=== PATIENT | male | born 1995 | race Caucasian/White ===

== ENCOUNTER 2019-07-13 10:31 | Emergency (ER) | payer SELFPAY ==
[2019-07-13] MEDS ORDERED: IBUPROFEN 200 MG TAB PO ONE (10:57)
[2019-07-13] MEDS ORDERED: HYDROCODONE/APAP 7.5/325 MG TAB ONE (10:57)
[2019-07-13] MEDS ORDERED: IBUPROFEN 400 MG TAB ONE (10:58)
--- NOTE | 2019-07-13 11:11 | RAD REPORT ---
EXAM DESCRIPTION: RAD - Wrist Left 3 View - 07/13/2019 11:04 am CLINICAL HISTORY: Pain;Swelling Pain COMPARISON: No comparisons FINDINGS: No fracture or dislocation seen. No foreign body or other soft tissue abnormality. IMPRESSION: Negative examination.
--- NOTE | 2019-07-13 11:17 | ER ---
Nurse's Notes [facility] Name: Simone Garcia Age: 23 yrs Sex: Male : 1995 Arrival Date: 07/13/2019 Time: 10:32 Bed 7 Private MD: Diagnosis: Other specified sprain of left wrist Presentation: 07/12 10:34 Chief complaint: Patient states: Last night, tripped and fell, landed on the L side, ca1 tried to catch self with L hand. Reports pain and limited mobility on L wrist. Reports pain on L shoulder and L side of chest. Coronavirus screen: Proceed with normal triage. Patient denies a cough. Patient denies shortness of breath or difficulty breathing. Patient denies measured and/or subjective temperature greater than 100.4F prior to today's visit. Patient denies travel on a cruise ship or to a country the [facility] currently lists as an affected area. Patient denies contact with known and/or suspected case of COVID-19. Ebola Screen: Patient negative for fever greater than or equal to 101.5 degrees Fahrenheit, and additional compatible Ebola Virus Disease symptoms Patient denies exposure to infectious person. Patient denies travel to an Ebola-affected area in the 21 days before illness onset. No symptoms or risks identified at this time. Initial Sepsis Screen: Does the patient meet any 2 criteria? No. Patient's initial sepsis screen is negative. Does the patient have a suspected source of infection? No. Patient's initial sepsis screen is negative. Risk Assessment: Do you want to hurt yourself or someone else? Patient reports no desire to harm self or others. Onset of symptoms was July 12, 2019. 10:34 Method Of Arrival: Ambulatory ca1 10:34 Acuity: JORGE 4 ca1 Triage Assessment: 10:40 General: Appears in no apparent distress. comfortable, Behavior is calm, cooperative, bp appropriate for age. Pain: Complains of pain in left wrist. EENT: No deficits noted. Neuro: No deficits noted. Cardiovascular: No deficits noted. Respiratory: No deficits noted. GI: No signs and/or symptoms were reported involving the gastrointestinal system. : No signs and/or symptoms were reported regarding the genitourinary system. Derm: No deficits noted. Musculoskeletal: Swelling present in left wrist. Historical: - Allergies: 10:38 No Known Allergies; ca1 - Home Meds: 10:38 None [Active]; ca1 - PMHx: 10:38 None; ca1 - PSHx: 10:38 None; ca1 - Immunization history:: Adult Immunizations up to date, Flu vaccine is up to date. - Social history:: Smoking status: Patient/guardian denies using tobacco, the patient reports quitting approximately 1 years ago. Screenin:40 Abuse screen: Denies threats or abuse. Denies injuries from another. Nutritional bp screening: No deficits noted. Tuberculosis screening: No symptoms or risk factors identified. Fall Risk Fall in past 12 months (25 points). No secondary diagnosis (0 pts). No IV (0 pts). Ambulatory Aid- None/Bed Rest/Nurse Assist (0 pts). Gait- Normal/Bed Rest/Wheelchair (0 pts) Mental Status- Oriented to own ability (0 pts). Total Hicks Fall Scale indicates Low Risk Score (25-44 pts). Fall prevention measures have been instituted. Side Rails Up X 2 Placed close to Nursing Station Frequent Obs/Assesments occuring As available Patient and Family Educated on Fall Prevention Program and strategies. Assessment: 10:40 General: SEE TRIAGE NOTE. bp 10:45 General: Appears comfortable, Behavior is calm, cooperative. Pain: Complains of pain in aa5 left arm and left wrist and left side of chest Pain does not radiate. Pain currently is 8 out of 10 on a pain scale. Quality of pain is described as aching, Is continuous. Neuro: Level of Consciousness is awake, alert, obeys commands, Oriented to person, place, time, situation. Cardiovascular: Patient's skin is warm and dry. Respiratory: Airway is patent Respiratory effort is even, unlabored, Respiratory pattern is regular, symmetrical. GI: No signs and/or symptoms were reported involving the gastrointestinal system. : No signs and/or symptoms were reported regarding the genitourinary system. EENT: No signs and/or symptoms were reported regarding the EENT system. Derm: Skin is pink, warm \T\ dry. Musculoskeletal: Swelling present in left wrist. 11:30 Reassessment: Patient is alert, oriented x 3, equal unlabored respirations, skin aa5 warm/dry/pink. Vital Signs: 10:34 BP 155 / 94; Pulse 86; Resp 17 S; Temp 97.6(TE); Pulse Ox 99% on R/A; Weight 79.38 kg ca1 (R); Height 6 ft. 1 in. (185.42 cm); 10:34 Body Mass Index 23.09 (79.38 kg, 185.42 cm) ca1 ED Course: 10:32 Patient arrived in ED. ag5 10:32 [facility]i Gardner F[facility]-C [facility] kb 10:32 Dl Lopez MD is Attending Physician. kb 10:37 Triage completed. ca1 10:38 Arm band placed on right wrist. ca1 10:39 Iman Mayes, RN is Primary Nurse. aa5 10:40 Patient has correct armband on for positive identification. Bed in low position. Call bp light in reach. Side rails up X2. 11:04 Wrist Left (3 View) XRAY In Process Unspecified. EDMS 11:25 Velcro wrist splint applied to left wrist. dh3 11:30 No provider procedures requiring assistance completed. Patient did not have IV access aa5 during this emergency room visit. Administered Medications: 10:50 Drug: Moody (7.5 mg-325 mg) 1 tabs Route: PO; aa5 11:33 Follow up: Response: No adverse reaction aa5 10:50 Drug: Ibuprofen 600 mg Route: PO; aa5 11:33 Follow up: Response: No adverse reaction aa5 Outcome: 11:16 Discharge ordered by . kb 11:30 Discharged to home ambulatory. aa5 11:30 Condition: stable 11:30 Discharge instructions given to patient, Instructed on discharge instructions, follow up and referral plans. medication usage, Demonstrated understanding of instructions, follow-up care, medications, Prescriptions given X 1. 11:34 Patient left the ED. aa5 Signatures: Dispatcher [employer] EDMS Natali Gardner FNP-C FNP-Ckb Calderon, Audri, RN RN aa5 Isela Nicole 3 Giacomo Olmedo RN RN bp Acob, Cheryl, RN RN ca1 Amanda Wesley ag5
--- NOTE | 2019-07-13 11:17 | EDPHYS ---
Physician Documentation [facility] Name: Simone Garcia Age: 23 yrs Sex: Male : 1995 Arrival Date: 07/13/2019 Time: 10:32 Bed 7 Private MD: ED Physician Dl Lopez HPI: 07/12 11:14 This 23 yrs old Male presents to ER via Ambulatory with complaints of Fall kb Injury, Wrist Injury. 11:14 The patient or guardian reports decreased range of motion, injury, pain, swelling, kb tenderness. The complaints affect the left wrist diffusely. Context: The problem was sustained at home, resulted from "horseplaying and fell" onto outstretched hand. Onset: The symptoms/episode began/occurred last night. Modifying factors: The symptoms are alleviated by nothing, the symptoms are aggravated by movement. Associated signs and symptoms: The patient has no apparent associated signs or symptoms. The patient has not experienced similar symptoms in the past. The patient has not recently seen a physician. Pt reports pain, swelling, decreased ROM and tenderness to left wrist. Reports soreness to left elbow, shoulder and chest, but with full ROM/no pain on ROM of other joints. Historical: - Allergies: 10:38 No Known Allergies; ca1 - Home Meds: 10:38 None [Active]; ca1 - PMHx: 10:38 None; ca1 - PSHx: 10:38 None; ca1 - Immunization history:: Adult Immunizations up to date, Flu vaccine is up to date. - Social history:: Smoking status: Patient/guardian denies using tobacco, the patient reports quitting approximately 1 years ago. ROS: 11:14 Constitutional: Negative for fever, chills, and weight loss, Cardiovascular: Negative kb for chest pain, palpitations, and edema, Respiratory: Negative for shortness of breath, cough, wheezing, and pleuritic chest pain, Abdomen/GI: Negative for abdominal pain, nausea, vomiting, diarrhea, and constipation, Back: Negative for injury and pain, Skin: Negative for injury, rash, and discoloration, Neuro: Negative for headache, weakness, numbness, tingling, and seizure. 11:14 MS/extremity: Positive for pain, swelling, tenderness, of the left wrist. Exam: 11:13 Constitutional: This is a well developed, well nourished patient who is awake, alert, kb and in no acute distress. Head/Face: Normocephalic, atraumatic. Chest/axilla: Normal chest wall appearance and motion. Nontender with no deformity. No lesions are appreciated. Cardiovascular: Regular rate and rhythm with a normal S1 and S2. No gallops, murmurs, or rubs. Normal PMI, no JVD. No pulse deficits. Respiratory: Lungs have equal breath sounds bilaterally, clear to auscultation and percussion. No rales, rhonchi or wheezes noted. No increased work of breathing, no retractions or nasal flaring. Abdomen/GI: Soft, non-tender, with normal bowel sounds. No distension or tympany. No guarding or rebound. No evidence of tenderness throughout. Skin: Warm, dry with normal turgor. Normal color with no rashes, no lesions, and no evidence of cellulitis. Neuro: Awake and alert, GCS 15, oriented to person, place, time, and situation. Cranial nerves II-XII grossly intact. Motor strength 5/5 in all extremities. Sensory grossly intact. Cerebellar exam normal. Normal gait. 11:13 Musculoskeletal/extremity: Extremities: grossly normal except: noted in the left wrist: decreased ROM, pain, swelling, tenderness, ROM: limited active range of motion due to pain, in the left wrist, Circulation is intact in all extremities. Sensation intact. Vital Signs: 10:34 BP 155 / 94; Pulse 86; Resp 17 S; Temp 97.6(TE); Pulse Ox 99% on R/A; Weight 79.38 kg ca1 (R); Height 6 ft. 1 in. (185.42 cm); 10:34 Body Mass Index 23.09 (79.38 kg, 185.42 cm) ca1 MDM: 10:39 Patient medically screened. kb 11:13 Data reviewed: vital signs, nurses notes. Data interpreted: Pulse oximetry: on room air kb is 99 %. Interpretation: normal. Counseling: I had a detailed discussion with the patient and/or guardian regarding: the historical points, exam findings, and any diagnostic results supporting the discharge/admit diagnosis, radiology results, the need for outpatient follow up, a orthopedic surgeon, to return to the emergency department if symptoms worsen or persist or if there are any questions or concerns that arise at home. 07/12 10:43 Order name: Wrist Left (3 View) XRAY; Complete Time: 11:13 kb 07/12 10:43 Order name: Ice pack; Complete Time: 10:46 kb 07/12 11:13 Order name: Wrist Splint; Complete Time: 11:27 kb Administered Medications: 10:50 Drug: Childress (7.5 mg-325 mg) 1 tabs Route: PO; aa5 11:33 Follow up: Response: No adverse reaction aa5 10:50 Drug: Ibuprofen 600 mg Route: PO; aa5 11:33 Follow up: Response: No adverse reaction aa5 Disposition: 12:02 Co-signature as Attending Physician, Dl Lopez MD I agree with the assessment and kdr plan of care. Disposition: 07/13/19 11:16 Discharged to Home. Impression: Other specified sprain of left wrist. - Condition is Stable. - Discharge Instructions: Wrist Pain, [id number], Wrist Sprain. - Prescriptions for Diclofenac Sodium 75 mg Oral Tablet, Delayed Release (E.C.) - take 1 tablet by ORAL route 2 times per day As needed; 30 tablet. - Medication Reconciliation Form, Thank You Letter, Antibiotic Education, Prescription Opioid Use, Work release form form. - Follow up: Emergency Department; When: As needed; Reason: Worsening of condition. Follow up: Private Physician; When: 2 - 3 days; Reason: Recheck today's complaints, Continuance of care, Re-evaluation by your physician. Signatures: Dispatcher [employer] EDMN Natali Gardner, ASSESSMENT SPECIALIST-C ASSESSMENT SPECIALIST-Dl Gomez MD MD [facility] Iman Mayes RN RN aa5 Terri Barcenas RN RN [facility] Corrections: (The following items were deleted from the chart) 11:34 11:16 07/13/2019 11:16 Discharged to Home. Impression: Other specified sprain of left aa5 wrist. Condition is Stable. Forms are Medication Reconciliation Form, Thank You Letter, Antibiotic Education, Prescription Opioid Use. Follow up: Emergency Department; When: As needed; Reason: Worsening of condition. Follow up: Private Physician; When: 2 - 3 days; Reason: Recheck today's complaints, Continuance of care, Re-evaluation by your physician. kb
[2019-07-13 11:39] VITALS: BP 155/94; TEMP 97.6; O2SAT 99
== END 2019-07-13 11:34 | disposition home or self-care (01) ==
LOC: ER 10:31
DX: S63.592A Other specified sprain of left wrist, initial encounter (principal); W19.XXXA Unspecified fall, initial encounter; Y93.89 Activity, other specified; Y92.009 Unspecified place in unspecified non-institutional (private) residence as the place of occurrence of the external cause; Z87.891 Personal history of nicotine dependence
CPT/HCPCS: 99284

== ENCOUNTER 2020-05-30 20:05 | Emergency (ER) | payer SELFPAY ==
[2020-05-30 23:36] LABS: Protime INR 1.03
[2020-05-30 23:37] LABS: Absolute Lymphocytes (CBC) 1.9 K/uL (0.7-4.9); Basophils % 0.3 % (0-1.3); Hematocrit 48.1 % (39.6-49.0); Lymphocytes % 20.6 % (15.3-44.8); MPV 8.5 fL (7.6-11.3); RBC Red Blood Cell Count 5.33 M/uL (4.33-5.43)
[2020-05-30 23:46] LABS: Barbiturates NEGATIVE (NEGATIVE); Benzodiazepines NEGATIVE (NEGATIVE); Cocaine NEGATIVE (NEGATIVE); METHAMPHETAM NEGATIVE (NEGATIVE); Methadone NEGATIVE (NEGATIVE); Opiates POSITIVE (NEGATIVE); Phencyclidine NEGATIVE (NEGATIVE); THC Cannibis POSITIVE (NEGATIVE)
[2020-05-30 23:53] LABS: ALT/SGPT 44 U/L (12-78); AST/SGOT 23 U/L (15-37); Albumin 4.5 g/dL (3.4-5.0); Alkaline Phosphatase 61 U/L (45-117); BUN Blood Urea Nitrogen 16 mg/dL (7-18); Bicarbonate 25 mmol/L (21-32); Bilirubin Direct 0.1 mg/dL (0-0.2); Bilirubin Total 0.5 mg/dL (0.2-1.0); Glucose Level 94 mg/dL (74-106); Magnesium 2.3 mg/dL (1.8-2.4); Protein, Total 8.2 g/dL (6.4-8.2); Sodium Level 138 mmol/L (136-145); Troponin (Emerg Dept Use Only) < 0.02 ng/mL (0.0-0.045)
[2020-05-30 23:58] LABS: NT PRO-BNP < 5 pg/mL (<125)
--- NOTE | 2020-05-31 00:10 | ER ---
Nurse's Notes [facility] Name: Simone Garcia Age: 24 yrs Sex: Male : 1995 Arrival Date: 05/30/2020 Time: 20:09 Bed 14 Private MD: Diagnosis: Palpitations;Cannabis abuse, uncomplicated Presentation: 05/30 20:10 Chief complaint: Patient states: 45 minutes [employer], Took a shot of Tequila and a [place] ca1 light. I started having palpitations, midsternal chest pain, I was sweating and couldn't breathe. I checked my pulse and it was at 150 This happened once before, a month ago, I was driving and I felt dizzy and things got blurry, I couldn't see anything. Denies HX of Hear conditions. Coronavirus screen: Client denies travel out of the [place] in the last 14 days. shortness of breath, Client presents with at least one sign or symptom that may indicate coronavirus-19. Standard/surgical mask placed on the client. Provider contacted for isolation considerations. Ebola Screen: Patient negative for fever greater than or equal to 101.5 degrees Fahrenheit, and additional compatible Ebola Virus Disease symptoms Patient denies exposure to infectious person. Patient denies travel to an Ebola-affected area in the 21 days before illness onset. No symptoms or risks identified at this time. Initial Sepsis Screen: Does the patient meet any 2 criteria? No. Patient's initial sepsis screen is negative. Does the patient have a suspected source of infection? No. Patient's initial sepsis screen is negative. Risk Assessment: Do you want to hurt yourself or someone else? Patient reports no desire to harm self or others. Onset of symptoms was May 30, 2020. 20:10 Method Of Arrival: Ambulatory ca1 20:10 Acuity: JORGE 3 ca1 Historical: - Allergies: 20:30 No Known Allergies; ca1 - Home Meds: 20:30 None [Active]; ca1 - PMHx: 20:30 None; ca1 - PSHx: 20:30 None; ca1 - Immunization history:: Flu vaccine is not up to date. - Social history:: Smoking status: Patient/guardian denies using tobacco, the patient reports quitting approximately 3.5 years ago, Patient uses alcohol, weekly. caffeine, daily in the form of Dr. Beyer, Patient/guardian denies using street drugs, IV drugs. Screenin:10 Abuse screen: Denies threats or abuse. Denies injuries from another. Nutritional sf screening: No deficits noted. Tuberculosis screening: No symptoms or risk factors identified. Never had TB. Possible symptoms: None Risk factors: None. Fall Risk None identified. No fall in past 12 months (0 pts). No secondary diagnosis (0 pts). IV access (20 points). Ambulatory Aid- None/Bed Rest/Nurse Assist (0 pts). Gait- Normal/Bed Rest/Wheelchair (0 pts) Mental Status- Oriented to own ability (0 pts). Total Hicks Fall Scale indicates No Risk (0-24 pts). Assessment: 22:09 General: Appears in no apparent distress. comfortable, Behavior is calm, cooperative, sf appropriate for age. Pain: Denies pain. Neuro: No deficits noted. Level of Consciousness is awake, alert, Oriented to person, place, time, situation. Cardiovascular: Reports chest pain, palpitations, Denies shortness of breath, Patient's skin is warm and dry. Rhythm is sinus rhythm. Respiratory: No deficits noted. Airway is patent Respiratory effort is even, unlabored, Respiratory pattern is regular, symmetrical. GI: No signs and/or symptoms were reported involving the gastrointestinal system. : No signs and/or symptoms were reported regarding the genitourinary system. Derm: No signs and/or symptoms reported regarding the dermatologic system. Skin is pink, warm \T\ dry. Vital Signs: 20:10 BP 157 / 83; Pulse 122; Resp 18 S; Temp 98.7(TE); Pulse Ox 99% on R/A; Weight 83.91 kg ca1 (R); Height 6 ft. 1 in. (185.42 cm) (R); Pain 5/10; 20:30 Pulse 110; ca1 22:13 BP 135 / 85; Pulse 80; Resp 16; Pulse Ox 97% ; Pain 0/10; sf 22:30 BP 121 / 72; Pulse 73; Resp 16; Pulse Ox 97% ; sf 23:30 BP 113 / 66; Pulse 62; Resp 16; Pulse Ox 97% ; sf 05/31 00:00 BP 115 / 68; Pulse 62; Resp 16; Pulse Ox 98% ; sf 03 20:10 Body Mass Index 24.41 (83.91 kg, 185.42 cm) ca1 ED Course: 05/30 20:09 Patient arrived in ED. es 20:30 Triage completed. ca1 20:30 Arm band placed on right wrist. EKG completed in triage. Results shown to MD. ca1 22:00 Frederick Alvarado MD is Attending Physician. tw4 22:02 Suleman Abernathy, RN is Primary Nurse. sf 22:09 Patient has correct armband on for positive identification. Placed in gown. Bed in low sf position. Call light in reach. Side rails up X 1. monitoring manager on. Pulse ox on. NIBP on. Door closed. Noise minimized. Visitors limited. Lights dimmed. Verbal reassurance given. 23:20 Inserted saline lock: 20 gauge in right antecubital area, using aseptic technique. zb Blood collected. 23:39 Urine Dipstick--Ancillary (enter results) Sent. zb 05/31 00:29 Claudio Bowser MD is Referral Physician. tw4 00:29 Frandy Larson MD is Referral Physician. tw4 00:29 Darin De La Fuente MD is Referral Physician. tw4 00:41 No provider procedures requiring assistance completed. IV discontinued, intact, sf bleeding controlled, No redness/swelling at site. Pressure dressing applied. Administered Medications: No medications were administered Outcome: 00:08 Discharge ordered by . tw4 00:41 Discharged to home ambulatory. sf 00:41 Condition: stable 00:41 Discharge instructions given to patient, Instructed on discharge instructions, follow up and referral plans. Demonstrated understanding of instructions, follow-up care. 00:42 Patient left the ED. sf Signatures: Elidia Betancur Terrence, MD MD tw4 Terri Barcenas RN RN ca1 Nani Powell RN RN zb Suleman Abernathy, NANI CARDOZA sf
--- NOTE | 2020-05-31 00:10 | EDPHYS ---
Physician Documentation [facility] Name: Simone Garcia Age: 24 yrs Sex: Male : 1995 Arrival Date: 05/30/2020 Time: 20:09 Bed 14 Private MD: ED Physician Frederick Alvarado HPI: 05/30 22:13 This 24 yrs old Male presents to ER via Ambulatory with complaints of tw4 Palpitations, chills,sweat. 22:13 The patient presents with a history of heart racing. Context: The symptoms occur at tw4 rest. Onset: The symptoms/episode began/occurred today. Duration: The patient or guardian reports a single episode, that is now resolved. Modifying factors: The symptoms are aggravated by nothing. The symptoms are alleviated by nothing. Severity of symptoms: At their worst the symptoms were moderate in the emergency department the symptoms are unchanged. The patient has not experienced similar symptoms in the past. Historical: - Allergies: 20:30 No Known Allergies; ca1 - Home Meds: 20:30 None [Active]; ca1 - PMHx: 20:30 None; ca1 - PSHx: 20:30 None; ca1 - Immunization history:: Flu vaccine is not up to date. - Social history:: Smoking status: Patient/guardian denies using tobacco, the patient reports quitting approximately 3.5 years ago, Patient uses alcohol, weekly. caffeine, daily in the form of DrFrancois Pepper, Patient/guardian denies using street drugs, IV drugs. ROS: 22:13 Constitutional: Negative for fever, chills, and weight loss, Eyes: Negative for injury, tw4 pain, redness, and discharge, Neck: Negative for injury, pain, and swelling, Respiratory: Negative for shortness of breath, cough, wheezing, and pleuritic chest pain, Abdomen/GI: Negative for abdominal pain, nausea, vomiting, diarrhea, and constipation, Back: Negative for injury and pain, MS/Extremity: Negative for injury and deformity, Skin: Negative for injury, rash, and discoloration. 22:13 Cardiovascular: Positive for palpitations. 22:13 Neuro: Positive for dizziness, near syncope, weakness, Negative for altered mental status, gait disturbance, headache, hearing loss, loss of consciousness, numbness, seizure activity, speech changes, syncope, tingling. Exam: 22:13 Constitutional: This is a well developed, well nourished patient who is awake, alert, tw4 and in no acute distress. Head/Face: Normocephalic, atraumatic. Chest/axilla: Normal chest wall appearance and motion. Nontender with no deformity. No lesions are appreciated. Cardiovascular: Regular rate and rhythm with a normal S1 and S2. No gallops, murmurs, or rubs. Normal PMI, no JVD. No pulse deficits. Respiratory: Lungs have equal breath sounds bilaterally, clear to auscultation and percussion. No rales, rhonchi or wheezes noted. No increased work of breathing, no retractions or nasal flaring. Abdomen/GI: Soft, non-tender, with normal bowel sounds. No distension or tympany. No guarding or rebound. No evidence of tenderness throughout. Back: No spinal tenderness. No costovertebral tenderness. Full range of motion. MS/ Extremity: Pulses equal, no cyanosis. Neurovascular intact. Full, normal range of motion. Neuro: Awake and alert, GCS 15, oriented to person, place, time, and situation. Cranial nerves II-XII grossly intact. Motor strength 5/5 in all extremities. Sensory grossly intact. Cerebellar exam normal. Normal gait. Psych: Awake, alert, with orientation to person, place and time. Behavior, mood, and affect are within normal limits. Vital Signs: 20:10 BP 157 / 83; Pulse 122; Resp 18 S; Temp 98.7(TE); Pulse Ox 99% on R/A; Weight 83.91 kg ca1 (R); Height 6 ft. 1 in. (185.42 cm) (R); Pain 5/10; 20:30 Pulse 110; ca1 22:13 BP 135 / 85; Pulse 80; Resp 16; Pulse Ox 97% ; Pain 0/10; sf 22:30 BP 121 / 72; Pulse 73; Resp 16; Pulse Ox 97% ; sf 23:30 BP 113 / 66; Pulse 62; Resp 16; Pulse Ox 97% ; sf 05/31 00:00 BP 115 / 68; Pulse 62; Resp 16; Pulse Ox 98% ; sf 05/30 20:10 Body Mass Index 24.41 (83.91 kg, 185.42 cm) ca1 MDM: 05/30 22:00 Patient medically screened. tw4 05/31 00:07 Differential diagnosis: arrythmia, dehydration, stress disorder. Data reviewed: vital tw4 signs, nurses notes. Data interpreted: Pulse oximetry: Interpretation: normal. Counseling: I had a detailed discussion with the patient and/or guardian regarding: the historical points, exam findings, and any diagnostic results supporting the discharge/admit diagnosis, lab results. Special discussion: I discussed with the patient/guardian in detail that at this point there is no indication for admission to the hospital. It is understood, however, that if the symptoms persist or worsen the patient needs to return immediately for re-evaluation. 05/30 22:01 Order name: Basic Metabolic Panel; Complete Time: 00:06 05/31 00:06 Interpretation: Within normal limits. 05/30 22:01 Order name: CBC with Diff; Complete Time: 00:06 05/31 00:07 Interpretation: Within normal limits. 05/30 22:01 Order name: LFT's; Complete Time: 00:06 05/31 00:06 Interpretation: Normal except: GLOB 3.7. 05/30 22:01 Order name: Magnesium; Complete Time: 00:06 05/31 00:07 Interpretation: Within normal limits: MG 2.3. 05/30 22:01 Order name: NT PRO-BNP; Complete Time: 00:06 05/31 00:07 Interpretation: Within normal limits: NT PRO-BNP < 5. 05/30 22:01 Order name: PT-INR; Complete Time: 00:06 05/31 00:07 Interpretation: Within normal limits: PT 11.8. 05/30 20:31 Order name: EKG; Complete Time: 20:32 ca1 05/30 20:31 Order name: EKG - Nurse/Tech; Complete Time: 20:31 ca1 05/30 22:01 Order name: Troponin (emerg Dept Use Only); Complete Time: 00:06 05/31 00:07 Interpretation: Within normal limits: TROPED < 0.02. 05/30 22:01 Order name: Cardiac monitoring; Complete Time: 22:08 05/30 22:04 Order name: Urine Drug Screen; Complete Time: 23:47 05/30 23:47 Interpretation: Normal except: OPI POSITIVE; THC POSITIVE. tw4 05/30 22:04 Order name: Alcohol Level; Complete Time: 00:06 tw4 05/31 00:07 Interpretation: Within normal limits: ETOH < 10. tw4 05/30 23:23 Order name: Urine Dipstick--Ancillary (enter results) tt3 05/30 23:24 Order name: Urine Dipstick-Ancillary [facility] 05/30 22:01 Order name: IV Saline Lock; Complete Time: 23:39 tw4 05/30 22:01 Order name: Labs collected and sent; Complete Time: 23:39 tw4 05/30 22:01 Order name: O2 Per Protocol; Complete Time: : tw4 05/30 22:01 Order name: O2 Sat Monitoring; Complete Time: : tw4 EC/10 22:15 Rate is 123 beats/min. Rhythm is regular. QRS [place] is Normal. [place] interval is normal. tw4 QRS interval is normal. QT interval is normal. No Q waves. T waves are Normal. No ST changes noted. Clinical impression: Sinus tachycardia. Interpreted by me. Reviewed by me. Administered Medications: No medications were administered Disposition: 05/31/20 00:08 Discharged to Home. Impression: Palpitations, Cannabis abuse, uncomplicated. - Condition is Stable. - Discharge Instructions: Cannabis Use Disorder, Palpitations. - Medication Reconciliation Form, Thank You Letter, Antibiotic Education, Prescription Opioid Use form. - Follow up: Private Physician; When: Upon discharge from the Emergency Department; Reason: Recheck today's complaints, Continuance of care, Re-evaluation by your physician. Follow up: Claudio Bowser MD; When: Upon discharge from the Emergency Department; Reason: Recheck today's complaints, Continuance of care, Re-evaluation by your physician. Follow up: Frandy Larson MD; When: Upon discharge from the Emergency Department; Reason: Recheck today's complaints, Continuance of care, Re-evaluation by your physician. Follow up: Darin De La Fuente MD; When: Upon discharge from the Emergency Department; Reason: Recheck today's complaints, Continuance of care, Re-evaluation by your physician. - Problem is new. - Symptoms have improved. Signatures: Dispatcher [employer] EDFrederick Wallace MD MD tw4 Terri Barcenas RN RN ca1 Suleman Abernathy RN RN sf Corrections: (The following items were deleted from the chart) 05/31 00:29 00:08 05/31/2020 00:08 Discharged to Home. Impression: Palpitations; Cannabis abuse, tw4 uncomplicated. Condition is Stable. Forms are Medication Reconciliation Form, Thank You Letter, Antibiotic Education, Prescription Opioid Use. Follow up: Private Physician; When: Upon discharge from the Emergency Department; Reason: Recheck today's complaints, Continuance of care, Re-evaluation by your physician. Problem is new. Symptoms have improved. tw4 00:42 00:29 05/31/2020 00:08 Discharged to Home. Impression: Palpitations; Cannabis abuse, sf uncomplicated. Condition is Stable. Discharge Instructions: Cannabis Use Disorder, Palpitations. Forms are Medication Reconciliation Form, Thank You Letter, Antibiotic Education, Prescription Opioid Use. Follow up: Private Physician; When: Upon discharge from the Emergency Department; Reason: Recheck today's complaints, Continuance of care, Re-evaluation by your physician. Follow up: Claudio Bowser; When: Upon discharge from the Emergency Department; Reason: Recheck today's complaints, Continuance of care, Re-evaluation by your physician. Follow up: Frandy Larson; When: Upon discharge from the Emergency Department; Reason: Recheck today's complaints, Continuance of care, Re-evaluation by your physician. Follow up: Darin De La Fuente; When: Upon discharge from the Emergency Department; Reason: Recheck today's complaints, Continuance of care, Re-evaluation by your physician. Problem is new. Symptoms have improved. tw4
[2020-05-31 00:42] LABS: Urine Blood NEGATIVE (NEG); Urine Glucose NEGATIVE (NEG); Urine Protein NEGATIVE (NEG); Urine Specific Gravity >1.030 (1.005-1.030)
[2020-05-31 02:23] VITALS: TEMP 98.7
[2020-05-31 02:28] VITALS: BP 115/68; O2SAT 98
--- NOTE | 2020-05-31 05:11 | EKG ---
Test Date: 2020-05-30 Test Time: 20:24:12 Disc Ruler Operator: RAFAEL MEASUREMENT RESULTS: Intervals: Rate: 123 DC: 146 QRSD: 90 QT: 310 QTc: 443 [place]: P: 80 DC: 146 QRS: 83 T: 68 INTERPRETIVE STATEMENTS: Sinus tachycardia Right atrial enlargement Borderline ECG No previous ECG available for comparison Electronically Signed On 05-31-20 05:11:07 INTERVENTIONAL RADIOLOGY RN by Claudio Bowser
== END 2020-05-31 00:42 | disposition home or self-care (01) ==
LOC: ER 20:05
DX: F12.10 Cannabis abuse, uncomplicated (principal)
CPT/HCPCS: 36415; 80048; 80076; 80307; 80320; 81003; 83735; 83880; 84484; 85025; 85610; 93005; 99284